=== PATIENT | female | born 2000 | race Hispanic/Latino ===

== ENCOUNTER 2022-07-18 17:20 | Emergency (ER) | payer OTHER ==
[~2022-07-18] VITALS: Ht 172.7 cm; Wt 97.0 kg
[2022-07-18 20:02] VITALS: BP 143/79
[2022-07-23] MEDS ORDERED: IBUP-1114 PO (10:01)
== END 2022-07-18 20:21 | disposition home or self-care (01) ==
LOC: M ED 17:20
DX: S82.832A Other fracture of upper and lower end of left fibula, initial encounter for closed fracture (principal); S93.492A Sprain of other ligament of left ankle, initial encounter; M25.372 Other instability, left ankle; X58.XXXA Exposure to other specified factors, initial encounter; Y92.330 Ice skating rink (indoor) (outdoor) as the place of occurrence of the external cause; Y93.21 Activity, ice skating

== ENCOUNTER → 2022-07-23 | Outpatient (CLI) | payer OTHER ==
[~2022-07-23] MED LIST: ECOT81TA5 PO; IBUP-1114 PO; OXYC1TAB23 PO
== END ==
LOC: M LABSMTC 10:00
PROVIDERS: ATTEND Anesthesiology
DX: Z01.818 Encounter for other preprocedural examination (principal)

== ENCOUNTER 2022-07-24 10:36 | Day surgery (SDC) | payer OTHER ==
[~2022-07-24] VITALS: Ht 172.7 cm; Wt 97.1 kg
[~2022-07-24 10:36] MED LIST changes: -ECOT81TA5 PO; -OXYC1TAB23 PO; +ceFAZolin SOD 2 GM in IV 1 EA IV ONE
[2022-07-24] MEDS ORDERED: fentaNYL 100 MCG/2 ML INJECTION As Ordered ONE (11:50)
[2022-07-24] MEDS ORDERED: MIDAZOLAM INJ 2MG/2ML VIAL As Ordered ONE (11:51)
[2022-07-24] MEDS ORDERED: LIDOCAINE 2% 100MG/5ML SDV (FOR ANES.) As Ordered ONE (11:51)
[2022-07-24] MEDS ORDERED: ONDANSETRON 4MG 2ML VIAL As Ordered ONE (11:51)
[2022-07-24] MEDS ORDERED: propofoL 200 MG/20 ML VIAL As Ordered ONE (11:51)
[2022-07-24] MEDS ORDERED: ROCURONIUM BROMIDE 50MG/5ML VIAL As Ordered ONE (11:51)
[2022-07-24] MEDS ORDERED: fentaNYL 100 MCG/2 ML INJECTION IV PRN ×2 (13:10→15:40)
[2022-07-24] MEDS ORDERED: MIDAZOLAM INJ 2MG/2ML VIAL IV PRN (13:10)
[2022-07-24] MEDS ORDERED: EPINEPHrine INJ 1 MG/ML 1ML AMP PN ONE (13:10)
[2022-07-24] MEDS ORDERED: ROPIvacaine 0.5% 30ML VIAL PN ONE (13:10)
[2022-07-24] MEDS ORDERED: LIDOCAINE 1% SDV 5ML VIAL PN ONE (13:10)
[2022-07-24] MEDS ORDERED: BUPIVACAINE/EPIN 0.25% 30ML VIAL As Ordered ONE (13:34)
[2022-07-24] MEDS ORDERED: ACETAMINOPHEN 1000MG 100ML IV BAG As Ordered ONE (14:38)
[2022-07-24] MEDS ORDERED: KETOROLAC 60MG 2ML VIAL As Ordered ONE (15:23)
[2022-07-24] MEDS ORDERED: ONDANSETRON 4MG 2ML VIAL IV PRN (15:40)
[2022-07-24] MEDS ORDERED: HYDROMORPHONE HCL 0.5 MG/ 0.5 ML SYRINGE IV PRN ×2 (15:40)
[2022-07-24] MEDS ORDERED: LR 1,000 ML IV SCH (15:40)
[2022-07-24] MEDS ORDERED: PERCOCET 5MG/325MG TAB PO PRN (15:40)
[2022-07-24] MEDS ORDERED: MEPERIDINE INJ 25 MG/ML VIAL IV PRN (15:40)
[2022-07-24] MEDS ORDERED: OXYC1TAB23 PO (16:01)
[2022-07-24] MEDS ORDERED: ECOT81TA5 PO (16:07)
[2022-07-24 17:35] VITALS: BP 142/80
== END 2022-07-24 18:00 | disposition home or self-care (01) ==
LOC: M SDC 10:36
PROVIDERS: ATTEND Orthopaedic Surgery
DX: S82.62XA Displaced fracture of lateral malleolus of left fibula, initial encounter for closed fracture (principal); V00.211A Fall from ice-skates, initial encounter; Y92.330 Ice skating rink (indoor) (outdoor) as the place of occurrence of the external cause
CPT/HCPCS: 27792; 27829; 76000; 81025; C1713; J0131; J0690; J1100; J1885; J2250; J2405; J3010; S0020

== ENCOUNTER → 2022-08-07 | Outpatient (CLI) | payer OTHER ==
[~2022-08-07] MED LIST changes: +ECOT81TA5 PO; +OXYC1TAB23 PO; -ceFAZolin SOD 2 GM in IV 1 EA IV ONE
== END ==
LOC: M SOG 07:57
PROVIDERS: ATTEND Orthopaedic Surgery
DX: S82.892A Other fracture of left lower leg, initial encounter for closed fracture (principal); Z98.890 Other specified postprocedural states; X58.XXXA Exposure to other specified factors, initial encounter; Y92.9 Unspecified place or not applicable; Y93.9 Activity, unspecified; Y99.9 Unspecified external cause status

== ENCOUNTER 2024-06-20 16:29 | Emergency (ER) | payer OTHER ==
[~2024-06-20] VITALS: Ht 172.7 cm; Wt 105.6 kg
[2024-06-20 19:47] LABS: BASO % 0.3 % (0.0-1.0); EOS # 0.1 10^3/uL (0.0-0.5); EOS % 1.6 % (0.0-3.0); HEMATOCRIT 37.3 % (36.0-47.0); HEMOGLOBIN 12.1 g/dl (12.0-15.5); LYMPH # 2.8 10^3/uL (1.5-5.0); LYMPH % 35.8 % (24.0-44.0); MEAN CORPUSCULAR HEMOGLOBIN 28.1 pg (27.0-33.0); MEAN CORPUSCULAR HGB CONC 32.4 g/dl (32.0-36.5); MEAN CORPUSCULAR VOLUME 86.7 fl (80.0-96.0); MONO # 0.5 10^3/uL (0.0-0.8); MONO % 5.9 % (2.0-8.0); NEUTROPHILS # 4.4 10^3/uL (1.5-8.5); NEUTROPHILS % 56.1 % (36.0-66.0); PLATELET COUNT, AUTOMATED 271 10^3/uL (150-450); WHITE BLOOD COUNT 7.9 10^3/uL (4.0-10.0)
[2024-06-20 20:15] LABS: BLOOD UREA NITROGEN 12 MG/DL (9-23); CALCIUM LEVEL 9.4 MG/DL (8.5-10.1); CARBON DIOXIDE LEVEL 25 MMOL/L (20-31); CHLORIDE LEVEL 106 MMOL/L (98-107); CREATININE FOR GFR 0.59 MG/DL (0.55-1.30); GLOMERULAR FILTRATION RATE > 60.0 (>60); GLUCOSE, FASTING 83 MG/DL (60-100); POTASSIUM SERUM 4.1 MMOL/L (3.5-5.1); SODIUM LEVEL 142 MMOL/L (136-145)
[2024-06-20 23:44] VITALS: BP 143/79; TEMP 97.4; O2SAT 98
== END 2024-06-21 02:12 | disposition left against medical advice (07) ==
LOC: M ED 06-21 01:39
DX: Z53.21 Procedure and treatment not carried out due to patient leaving prior to being seen by health care provider (principal)